=== PATIENT | female | born 1965 | race African-American/Black ===

== ENCOUNTER 2017-03-22 09:13 | Emergency (ER) | payer MEDICAID ==
[~2017-03-22] VITALS: Ht 152.4 cm; Wt 80.0 kg
[2017-03-22] MEDS ORDERED: TRAMADOL 50MG TABLET PO ONE (09:30)
[2017-03-22] MEDS ORDERED: KETOROLAC 60MG/2ML VIAL IM ONE (09:45)
[2017-03-22 09:59] VITALS: BP 141/111
== END 2017-03-22 10:30 | disposition home or self-care (01) ==
LOC: ER 09:13
DX: R05 Cough (principal); R07.89 Other chest pain; E78.00 Pure hypercholesterolemia, unspecified; D64.9 Anemia, unspecified; F17.200 Nicotine dependence, unspecified, uncomplicated
CPT/HCPCS: 71010; 96372; 99283; J1885; Z7610